=== PATIENT | female | born 1990 | race Asian ===

== ENCOUNTER 2018-10-03 09:40 | Inpatient (IN) | payer OTHER ==
[~2018-10-03 09:40] MED LIST: CEFAZOLIN 1 GM INJ; DESFLURANE 15 MIN
[2018-10-03 10:39] LABS: ADD MAN DIFF? NO
[2018-10-03 10:40] LABS: ABNORMAL IP MESSAGE 1; BASOPHIL # 0.1 10^3/ul (0.0-0.1); BASOPHILS % 0.7 % (0.0-2.0); EOSINOPHILS # 0.1 10^3/ul (0.0-0.5); EOSINOPHILS % 0.7 % (0.0-7.0); HEMATOCRIT 26.6 % (37.0-47.0); HEMOGLOBIN 7.6 g/dl (12.0-16.0); LYMPHOCYTES # 1.7 10^3/ul (0.8-2.9); MEAN CORPUSCULAR HEMOGLOBIN 18.9 pg (29.0-33.0); MEAN CORPUSCULAR HGB CONC 28.6 g/dl (32.0-37.0); MEAN PLATELET VOLUME 10.3 fl (7.4-10.4); MONOCYTE # 0.8 10^3/ul (0.3-0.9); MONOCYTES % 6.2 % (0.0-11.0); NEUTROPHIL # 9.6 10^3/ul (1.6-7.5); NEUTROPHILS % 78.1 % (39.0-77.0); PLATELET COUNT 236 10^3/UL (140-415); RED BLOOD COUNT 4.03 10^6/ul (4.20-5.40); RED CELL DISTRIBUTION WIDTH 19.2 % (11.5-14.5)
[2018-10-03 10:40] LABS: WHITE BLOOD COUNT 12.3 10^3/ul (4.8-10.8)
[2018-10-03 10:46] LABS: POSITIVE DIFF @See below
[2018-10-03 10:55] LABS: ADD UMIC YES; UR ASCORBIC ACID 20 mg/dL (NEGATIVE); UR BILIRUBIN (Dip) NEGATIVE (NEGATIVE); UR BLOOD (Dip) 2+ mg/dL (NEGATIVE); UR CLARITY CLEAR (CLEAR); UR COLOR YELLOW (YELLOW); UR GLUCOSE (Dip) NEGATIVE (NEGATIVE); UR KETONES (Dip) NEGATIVE (NEGATIVE); UR LEUKOCYTE ESTERASE (Dip) NEGATIVE Leu/ul (NEGATIVE); UR NITRITE (Dip) NEGATIVE (NEGATIVE); UR RBC 94 /HPF (0-5); UR TOTAL PROTEIN (Dip) NEGATIVE (NEGATIVE); UR UROBILINOGEN (Dip) NEGATIVE (NEGATIVE); UR WBC 1 /HPF (0-5)
[2018-10-03] MEDS: morphine 4 MG/ML VIAL IV (13:22)
[2018-10-03] MEDS: ONDANSETRON 4 MG INJ IV (13:22)
[2018-10-03] MEDS: SOD CHLORIDE 0.9% 1,000 ML IV (13:22)
[2018-10-03 13:36] LABS: INR 0.93; PARTIAL THROMBOPLASTIN TIME 25.6 Sec (23.0-35.0); PROTIME 12.5 Sec (11.9-14.9)
[2018-10-03] MEDS ORDERED: ONDANSETRON 4 MG INJ IV ×2 (15:00→18:30)
[2018-10-03] MEDS ORDERED: ACETAMINOPHEN 325 MG TAB PO ×2 (15:00→19:30)
[2018-10-03] MEDS: DEXTROSE 5%-LR 1,000 ML IV (17:36)
[2018-10-03] MEDS ORDERED: HYDROmorphONE 1 MG/5 ML IV SYRINGE IV ×2 (18:30)
[2018-10-03] MEDS ORDERED: MEPERIDINE 25 MG INJ IV (18:30)
[2018-10-03] MEDS ORDERED: ALBUTEROL 0.083% (NEB) 2.5 MG/3 ML AMP HHN (18:30)
[2018-10-03] MEDS ORDERED: DIPHENHYDRAMINE 50 MG INJ IV (18:30)
[2018-10-03] MEDS ORDERED: METOCLOPRAMIDE 10 MG INJ IV (18:30)
[2018-10-03] MEDS ORDERED: FENTAnyl 50 MCG/ML VIAL IV ×2 (18:30)
[2018-10-03] MEDS ORDERED: PHENYLephrine (100 MCG/ML) 5ML SYG (18:52)
[2018-10-03] MEDS ORDERED: GLYCOPYRROLATE 0.4 MG INJ (19:01)
[2018-10-03] MEDS ORDERED: SUCCINYLCHOLINE CHLORIDE 100 MG/5 ML SYG IV (19:01)
[2018-10-03] MEDS ORDERED: ROCURONIUM 50 MG INJ (19:01)
[2018-10-03] MEDS ORDERED: PROPOFOL 20 ML (19:01)
[2018-10-03] MEDS ORDERED: LIDOCAINE 100 MG SYRINGE (19:01)
[2018-10-03] MEDS ORDERED: NEOSTIGMINE 3 MG/3 ML SYRINGE (19:01)
[2018-10-03] MEDS ORDERED: OXYTOCIN 10 UNIT INJ (19:03)
[2018-10-03] MEDS: HYDROmorphONE 1 MG/5 ML IV SYRINGE IV (20:00)
== END 2018-10-03 22:20 | disposition home or self-care (01) | DRG 770 ==
LOC: FTE 09:40 → 2NE 14:43
PROVIDERS: Obstetrics & Gynecology
PROC: 10D17ZZ Extraction of Products of Conception, Retained, Via Natural or Artificial Opening (ICD-10-PCS; principal; 2018-10-03 18:47)
DX: O03.4 Incomplete spontaneous abortion without complication (principal)
CPT/HCPCS: 76801; 76817; 81001; 84702; 85025; 85610; 85730; 86850; 86900; 86901; 88305

== ENCOUNTER 2018-10-16 11:25 | Emergency (ER) | payer OTHER | END 2018-10-16 12:21 | disposition home or self-care (01) | LOC: FTE 11:25 | DX: G89.18 Other acute postprocedural pain (principal) | CPT/HCPCS: 99282; Z7502 ==